=== PATIENT | male | born 1945 | race Caucasian/White ===

== ENCOUNTER 2023-11-11 10:38 | Outpatient (AMB) | payer MEDICARE, SELFPAY ==
[2023-11-11 10:57] VITALS: BP 126/64; PULSE 52; RESP 13; O2SAT 99; BMI 24.2
--- NOTE | 2023-11-11 10:57 | A.OFFPC_ITS ---
Vital Signs 11/11/23 10:57 Height 5 ft 7.25 in Weight 156 lb BMI 24.2 BP 126/64 Blood Pressure Location Lt brachial Position Sitting Respiration 13 Pulse 52 Pulse Source Pulse Oximeter Pulse Oximetry (%) 99 Oxygen Delivery Method Room Air Intake Visit Reasons: npo seizure disorder Intake Note: Patient is accompanied by his , Danielle. Danielle reports the Patient has been diagnosed with dementia, has a seizure disorder and is overall doing well. Patient needs medication refills. Field Investigator Required: No Accompanied by: Spouse Allergies phenytoin [From Dilantin] Allergy (Severe, Verified 11/11/23 11:02) skin discoloration Tobacco use date assessed: 11/11/23 Fall risk assessment: No Falls in past year Last assessed Fall Risk: 11/11/23 Dental Screening Dental Screen Date: 11/11/23 Did you have a dental visit in the last 12 months?: Yes Did you have a dental problem in the last 6 months where you did not have access to dental care?: No Was dental information given to patient?: Patient has dentist HPI HPI Comments History of Present Illness Details The patient is a 78-year-old male with a past medical history memory i ssues, epilepsy, neck pain, low back pain, osteopenia hyponatremia, polyneuropathy presenting [facility]. He is transferring from [facility]. Neuro: History of epilepsy, stenosis MCA. MOCA . Follows with Dr. Velasquez neurology. No recent seizure. On carbamazepine 0.5 tab t.i.d. and Keppra 750 mg tablet-takes 1.5 tabs twice daily CV: On atenolol, atorvastatin. Normotensive. Denies chest pain, shortness of breath MSK: History of cervical disc fusion, history of L3-L4 microdiscectomy in 2010. Has EpiPen for anaphylaxis. DXA 2021 Colonoscopy September 2010 ROS CONSTITUTIONAL: Denies weight loss, fever and chills. HEENT: Denies changes in vision and hearing. RESPIRATORY: Denies SOB and cough. CV: Denies palpitations and CP GI: Denies abdominal pain, nausea, vomiting and diarrhea. : Denies dysuria and urinary frequency. MSK: Denies new myalgia and joint pain. SKIN: Denies rash and pruritus. NEUROLOGICAL: Denies headache PSYCHIATRIC: Denies recent changes in mood. PHYSICAL EXAM: GENERAL: Alert and oriented x 3. NAD EYES: EOMI. Anicteric. HENT: Moist mucous membranes. No scleral icterus. No cervical lymphadenopathy. LUNGS: Clear to auscultation bilaterally. CARDIOVASCULAR: Regular rate and rhythm. No murmur. No JVD. ABDOMEN: Soft, non-tender +bs EXTREMITIES: No edema. Non-tender. SKIN: No rashes or lesions. Warm. NEUROLOGIC: No focal neurological deficits. CN II-XII grossly intact PSYCHIATRIC: Cooperative. Appropriate mood and affect [facility] Medical History (Updated 11/26/23 @ 13:20 by Kierra Chino MD) Dementia Seizures Surgical History History of back surgery History of neck surgery Family History Mother Alzheimer dementia Hypertension Maternal Grandmother Alzheimer dementia Paternal Grandmother Diabetes Social History Household Members: Spouse Housing: Apartment Are you a primary child care leader to a significant other at home: No Do you presently have visiting nurse or other home services: No 75 years or older and lives alone: No Alcohol intake: never Patient Tobacco Use Status: Former Tobacco user (quit 51 years ago) Tobacco use type: Cigarette e-Cigarette/Vaping Use: Never Used service: Yes ([employer] ) Current occupational status: retired and disabled Cognitive needs: Yes (dementia) Hearing needs: No Vision needs: Yes (wears glasses, has floater in right eye) Questionnaire PHQ-9 Over the last 2 weeks, how often have you been bothered by any of the following problems? 1. Little interest or pleasure in doing things: not at all 2. Feeling down, depressed, or hopeless: not at all 3. Trouble falling or staying asleep, or sleeping too much: not at all 4. Feeling tired or having little energy: not at all 5. Poor appetite or overeating: not at all 6. Feeling bad about yourself - or that you are a failure or have let yourself or your family down: not at all 7. Trouble concentrating on things, such as reading the newspaper or watching television: not at all 8. Moving or speaking so slowly that other people could have noticed. Or the opposite - being so fidgety or restless that you have been moving around a lot more than usual: not at all 9. Thoughts that you would be better off or of hurting yourself in some way: not at all Total score: 0 Depression Screening Interpretation: Negative (neg) Depression Screening Done: Yes 21550 - PHQ-9 Billing: Yes Source: Developed by Drs. Brannon Olguin, Lucy Fong, Fede Nowak and colleagues, with an educational marina from [employer]. Thrive Questionnaire Date Thrive assessed: 11/11/23 I am a: Patient What is your living situation today?: I have a steady place to live Within the past 12 months, did the food you bought not last and you didn't have the money to get more?: Never true Within the past 12 months, did you worry whether your food would run out before you got money to buy more?: Never true Do you have trouble paying for medicines?: No Do you have trouble getting transportation to medical appointments?: No Do you have trouble paying your heating and electricity bill?: No Do you have trouble taking care of your child, family member or friend?: No Do you have trouble with day-to-day activities such as bathing, preparing meals, shopping, managing finances, etc.?: Yes Are you currently unemployed and looking for a job?: No Are you interested in more education?: No Please select the resources that you would like help with: None Currently or been in a relationship where the following occur: No concerns reported THRIVE Score: 0 AUDIT C Alcohol Use Questionnaire (AUDIT-C) 1. How often do you have a drink containing alcohol?: Never 3. How often do you have six or more drinks on one occasion?: Never Total Score: 0 VAHID-7 AMB Questionnaire VAHID-7 Date VAHID - 7 assessed: 11/11/23 Feeling nervous, anxious, or on edge: 0 = Not at all Not being able to stop or control worryin = Not at all Worrying too much about different things: 0 = Not at all Trouble relaxin = Not at all Being so restless that it is hard to sit still: 0 = Not at all Becoming easily annoyed or irritable: 0 = Not at all Feeling afraid as if something awful might happen: 0 = Not at all Total VAHID-7 score (0-4 normal; 5-9 mild; 10-14 moderate; 15-21 severe): 0 Source: Developed by Drs. Brannon Olguin, Lucy Fong, Fede Nowak and colleagues, with an educational marina from [employer]. VAHID-7 Assessment Billing VAHID-7 Assessment Tool: VAHID-7 Assessment 47785 Physical exam (Primary Care) Vital Signs: Last Vital Signs Pulse 52 11/11/23 10:57 Resp 13 11/11/23 10:57 BP 126/64 11/11/23 10:57 Pulse Ox 99 11/11/23 10:57 Oxygen Delivery Method Room Air 11/11/23 10:57 BMI result Body Mass Index 24.2 Tobacco/Smoking Status: Tobacco use Status Tobacco use date assessed 11/11/23 11/11/23 11:07 Patient Tobacco Use Status Former Tobacco user (quit 51 11/11/23 11:13 years ago) Tobacco use type Cigarette 11/11/23 11:13 e-Cigarette/Vaping Use Never Used 11/11/23 11:13 PHQ-9: PHQ-9 Score PHQ-9: Total score 0 11/26/23 13:20 Depression Screening Interpretation: Negative (neg) Thrive Assessment: Date of Thrive Assessment Date Thrive assessed 11/11/23 11/11/23 11:33 Currently or been in a relationship where the following occur: No concerns reported Assessment and Plan Assessment & Plan (1) Hypertension: Code(s): I10 - Essential (primary) hypertension Qualifiers: Hypertension type: primary hypertension Qualified Code(s): I10 - Essential (primary) hypertension Plan: continue current medications (2) Hyperlipidemia: Code(s): E78.5 - Hyperlipidemia, unspecified Qualifiers: Hyperlipidemia type: unspecified Qualified Code(s): E78.5 - Hyperlipidemia, unspecified Plan: continue statin therapy (3) Seizures: Code(s): R56.9 - Unspecified convulsions (4) Dementia: Code(s): F03.90 - Unspecified dementia, unspecified severity, without behavioral disturbance, psychotic disturbance, mood disturbance, and anxiety Qualifiers: Dementia behavioral or psychological symptom: without behavioral, psychotic, or mood disturbance or anxiety Dementia severity: unspecified severity Dementia type: unspecified type Qualified Code(s): F03.90 - Unspecified dementia, unspecified severity, without behavioral disturbance, psychotic disturbance, mood disturbance, and anxiety Coding Level of Care Code New Pt Level 4 (46427) Diagnoses Primary hypertension I10 Hypertension type: primary hypertension Hyperlipidemia, unspecified hyperlipidemia type E78.5 Hyperlipidemia type: unspecified Seizures R56.9 Dementia without behavioral disturbance, psychotic disturbance, mood distu rbance, or anxiety, unspecified dementia severity, unspecified dementia type F03.90 Dementia behavioral or psychological symptom: without behavioral, psychotic, or mood disturbance or anxiety Dementia severity: unspecified severity Dementia type: unspecified type Additional Codes VAHID-7 Assessment Billing - VAHID-7 Assessment Tool: VAHID-7 Assessment 17417 ([id number])
== END 2023-11-11 12:24 | disposition home or self-care (01) ==
PROVIDERS: PCP Family Medicine; Visit Provider Internal Medicine
DX: I10 Essential (primary) hypertension (principal); E78.5 Hyperlipidemia, unspecified; R56.9 Unspecified convulsions; F03.90 Unspecified dementia, unspecified severity, without behavioral disturbance, psychotic disturbance, mood disturbance, and anxiety
CPT/HCPCS: 99204

== ENCOUNTER 2024-05-14 14:06 | Outpatient (AMB) | payer MEDICARE, SELFPAY ==
--- NOTE | 2024-05-14 14:23 | MHC.PC.OV ---
Intake Visit Reasons: awv Intake Note: Medical wellness visit Biscuit Packer Required: No Allergies phenytoin [From Dilantin] Allergy (Severe, Verified 05/14/24 14:24) skin discoloration Tobacco use date assessed: 11/11/23 Dental Screening Dental Screen Date: 11/11/23 HPI HPI Comments History of Present Illness Details The patient is a 78-year-old male with a past medical history memory issues, epilepsy, neck pain, low back pain, osteopenia hyponatremia, polyneuropathy presenting for physical exam. Neuro: History of epilepsy, stenosis MCA. MOCA . Was following neurology. Has had significant memory loss over the past year. Needs to see neurology for formal dementia diagnosis. No recent seizure. On carbamazepine 0.5 tab t.i.d. and Keppra 750 mg tablet-takes 1.5 tabs twice daily CV: On atenolol, atorvastatin. Normotensive. Denies chest pain, shortness of breath MSK: History of cervical disc fusion, history of L3-L4 microdiscectomy in 2010. Has EpiPen for anaphylaxis. DXA 2021 Colonoscopy September 2010-declines repeat. cooks does dishes, chores due to memory/functioning deficits No falls ROS CONSTITUTIONAL: Denies weight loss, fever and chills. HEENT: Denies changes in vision and hearing. RESPIRATORY: Denies SOB and cough. CV: Denies palpitations and CP GI: Denies abdominal pain, nausea, vomiting and diarrhea. : Denies dysuria and urinary frequency. MSK: Denies new myalgia and joint pain. SKIN: Denies rash and pruritus. NEUROLOGICAL: Denies headache PSYCHIATRIC: Denies recent changes in mood. PHYSICAL EXAM: GENERAL: Alert and oriented x 3. NAD EYES: EOMI. Anicteric. HENT: Moist mucous membranes. No scleral icterus. No cervical lymphadenopathy. LUNGS: Clear to auscultation bilaterally. CARDIOVASCULAR: Regular rate and rhythm. No murmur. No JVD. ABDOMEN: Soft, non-tender +bs EXTREMITIES: No edema. Non-tender. SKIN: No rashes or lesions. Warm. NEUROLOGIC: No focal neurological deficits. CN II-XII grossly intact PSYCHIATRIC: Cooperative. Appropriate mood and affect [facility] Medical History (Updated 05/17/24 @ 06:36 by Kierra Chino MD) Dementia Seizures Surgical History History of back surgery History of neck surgery Family History Mother Alzheimer dementia Hypertension Maternal Grandmother Alzheimer dementia Paternal Grandmother Diabetes Social History Household Members: Spouse Housing: Apartment Are you a primary cardiac care unit nurse to a significant other at home: No Do you presently have visiting nurse or other home services: No Alcohol intake: never Patient Tobacco Use Status: Former Tobacco user (quit 51 years ago) Tobacco use type: Cigarette e-Cigarette/Vaping Use: Never Used service: Yes ([employer] ) Current occupational status: retired and disabled Cognitive needs: Yes (dementia) Hearing needs: No Vision needs: Yes (wears glasses, has floater in right eye) Questionnaire Thrive Questionnaire Date Thrive assessed: 11/11/23 VAHID-7 AMB Questionnaire VAHID-7 Date VAHID - 7 assessed: 11/11/23 Source: Developed by Drs. Brannon lOguin, Lucy Fong, Fede Nowak and colleagues, with an educational marina from [employer]. Physical exam (Primary Care) Tobacco/Smoking Status: Tobacco use Status Tobacco use date assessed 11/11/23 05/14/24 14:27 Patient Tobacco Use Status Former Tobacco user (quit 51 05/14/24 14:27 years ago) Tobacco use type Cigarette 05/14/24 14:27 e-Cigarette/Vaping Use Never Used 05/14/24 14:27 Thrive Assessment: Date of Thrive Assessment Date Thrive assessed 11/11/23 05/14/24 14:27 Coding Level of Care Code Est Pt Level 4 (17238) Est Pt Prev Care >65y(72405) Diagnoses Physical exam Z00.00 Primary hypertension I10 Hypertension type: primary hypertension Dementia without behavioral disturbance, psychotic disturbance, mood disturbance, or anxiety, unspecified dementia severity, unspecified dementia type F03.90 Dementia behavioral or psychological symptom: without behavioral, psychotic, or mood disturbance or anxiety Dementia severity: unspecified severity Dementia type: unspecified type Seizures R56.9 Assessment & Plan Assessment & Plan (1) Physical exam: Code(s): Z00.00 - Encounter for general adult medical examination without abnormal findings Category: Medical Plan: Preventive measures reviewed Chronic medical conditions, medications reconciled (2) Hypertension: Code(s): I10 - Essential (primary) hypertension Category: Medical Qualifiers: Hypertension type: primary hypertension Qualified Code(s): I10 - Essential (primary) hypertension Plan: stable on current medications (3) Dementia: Code(s): F03.90 - Unspecified dementia, unspecified severity, without behavioral disturbance, psychotic disturbance, mood disturbance, and anxiety Category: Medical Qualifiers: Dementia behavioral or psychological symptom: without behavioral, psychotic, or mood disturbance or anxiety Dementia severity: unspecified severity Dementia type: unspecified type Qualified Code(s): F03.90 - Unspecified dementia, unspecified severity, without behavioral disturbance, psychotic disturbance, mood disturbance, and anxiety Plan: referral to neurology for evaluation (4) Seizures: Code(s): R56.9 - Unspecified convulsions Category: Medical Plan: no interval seizures on medicaitons Orders: Orders Levetiracetam Keppra 05/14/24 R56.9 - Unspecified convulsions Comprehensive Met. Panel 05/14/24 E78.5 - Hyperlipidemia, unspecified, F03.90 - Unspecified dementia, unspecified severity, without behavioral disturbance, psychotic disturbance, mood disturbance, and anxiety, I10 - Essential (primary) hypertension, R56.9 - Unspecified convulsions, Z00.00 - Encounter for general adult medical examination without abnormal findings Prostate Specific Antigen 05/14/24 E78.5 - Hyperlipidemia, unspecified, F03.90 - Unspecified dementia, unspecified severity, without behavioral disturbance, psychotic disturbance, mood disturbance, and anxiety, I10 - Essential (primary) hypertension, R56.9 - Unspecified convulsions, Z00.00 - Encounter for general adult medical examination without abnormal findings Complete Blood Count Auto Diff 05/14/24 E78.5 - Hyperlipidemia, unspecified, F03.90 - Unspecified dementia, unspecified severity, without behavioral disturbance, psychotic disturbance, mood disturbance, and anxiety, I10 - Essential (primary) hypertension, R56.9 - Unspecified convulsions, Z00.00 - Encounter for general adult medical examination without abnormal findings Lipid Panel 05/14/24 E78.5 - Hyperlipidemia, unspecified, F03.90 - Unspecified dementia, unspecified severity, without behavioral disturbance, psychotic disturbance, mood disturbance, and anxiety, I10 - Essential (primary) hypertension, R56.9 - Unspecified convulsions, Z00.00 - Encounter for general adult medical examination without abnormal findings Referrals Neurology Referral F03.90 - Unspecified dementia, unspecified severity, without behavioral disturbance, psychotic disturbance, mood disturbance, and anxiety
== END 2024-05-14 15:27 | disposition home or self-care (01) ==
PROVIDERS: PCP Internal Medicine; Visit Provider Internal Medicine
DX: Z00.00 Encounter for general adult medical examination without abnormal findings (principal); I10 Essential (primary) hypertension; F03.90 Unspecified dementia, unspecified severity, without behavioral disturbance, psychotic disturbance, mood disturbance, and anxiety; R56.9 Unspecified convulsions

== ENCOUNTER 2024-05-14 15:36 | Outpatient (REF) | payer MEDICARE, SELFPAY ==
[2024-05-14 16:56] LABS: MANUAL DIFF FLAG NO
[2024-05-14 17:00] LABS: Basophils Percent Auto 0.6 % (0-2); Eosinophils Absolute Auto 0.1 X10*3/uL (0.0-0.4); Eosinophils Percent Auto 2.6 % (0-4); Hematocrit 39.8 % (42.0-52.0); Hemoglobin 14.1 g/dl (14.0-18.0); Imm Gran Abs Auto 0.01 X10*3/uL (0.00-0.03); Imm Gran Pct Auto 0.2 % (0.0-0.4); Lymphocytes Absolute Auto 1.3 X10*3/uL (1.2-4.9); Lymphocytes Percent Auto 24.3 % (20-40); Mean Corpuscular HGB Conc 35.4 g/dl (31.0-36.0); Mean Corpuscular Hemoglobin 33.2 pg (27.0-33.0); Mean Corpuscular Volume 93.6 fL (80.0-98.0); Mean Platelet Volume 9.5 fL (9.4-12.4); Monocytes Absolute Auto 0.5 X10*3/uL (0.1-1.2); Monocytes Percent Auto 9.8 % (2-11); Neutrophils Absolute Auto 3.3 x10*3/uL (2.0-8.3); Neutrophils Percent Auto 62.5 % (45-73); Platelet Count 198 X10*3/uL (160-400); Red Blood Count 4.25 X10*6/uL (4.60-5.80); Red Cell Distribution Width 12.1 % (11.0-16.0); White Blood Count 5.3 X10*3/uL (4.8-10.8)
[2024-05-14 17:51] LABS: Prostate Specific Antigen 0.83 ng/mL (<0.05-4.0)
[2024-05-14 18:02] LABS: Alanine Aminotransferase 8 U/L (0-40); Anion Gap 11 (12-20); Aspartate Amino Transferase 19 U/L (5-37); Bilirubin Total 0.3 mg/dL (0.0-1.0); Blood Urea Nitrogen 12 mg/dL (9-16); Calcium 9.1 mg/dL (8.4-10.2); Carbon Dioxide 28 mmol/L (22-29); Chloride 102 mmol/L (96-108); Cholesterol 153 mg/dL (<200); Estimated Glomerular Filt Rate > 60; Glucose Random 90 mg/dL (60-115); HDL Cholesterol 63 mg/dL (>40); LDL Cholesterol Calculated 77 mg/dL (<100); Potassium 4.6 mmol/L (3.3-5.1); Sodium 136 mmol/L (135-145); Total Protein 7.2 g/dL (6.5-8.0); Triglycerides 69 mg/dL (<150)
[2024-05-14 18:09] LABS: Alkaline Phosphatase 88 U/L (39-117)
[2024-05-17 20:38] LABS: Levetiracetam Keppra 20.1 mcg/mL (6.0-46.0)
== END 2024-05-14 15:37 | disposition home or self-care (01) ==
LOC: HO.WFDLDS 15:36
PROVIDERS: Visit Provider Internal Medicine
DX: Z00.00 Encounter for general adult medical examination without abnormal findings (principal); I10 Essential (primary) hypertension; F03.90 Unspecified dementia, unspecified severity, without behavioral disturbance, psychotic disturbance, mood disturbance, and anxiety; R56.9 Unspecified convulsions; E78.5 Hyperlipidemia, unspecified; Z12.5 Encounter for screening for malignant neoplasm of prostate
CPT/HCPCS: 36415; 80053; 80061; 80177; 84153; 85025; 99212; 99397

== ENCOUNTER 2024-10-25 15:27 | Outpatient (AMB) | payer MEDICARE, SELFPAY ==
--- NOTE | 2024-10-25 15:41 | A.OFFPC_ITS ---
Vital Signs 10/25/24 15:54 Height 5 ft 7.2 in Weight 156 lb BMI 24.3 BP 152/82 H Blood Pressure Location Lt brachial Position Sitting Respiration 12 Pulse 52 Pulse Source Pulse Oximeter Pulse Oximetry (%) 100 Oxygen Delivery Method Room Air Intake Visit Reasons: BP F/U Intake Note: Blood pressure follow up Training Specialist Required: No Allergies phenytoin (From Dilantin) Allergy (Severe, Verified 10/25/24 15:49) skin discoloration Tobacco use date assessed: 11/11/23 Dental Screening Dental Screen Date: 11/11/23 HPI HPI Comments History of Present Illness Details The patient is a 79-year-old male with dementia, epilepsy, neck pain, low back pain, osteopenia hyponatremia, polyneuropathy presenting for follow up Neuro: History of epilepsy, stenosis MCA. MOCA . Today did not do well. Score 13. Was following neurology. Continues with significant memory loss over the past year. Had memory/neurology referral-decided not to go through with it. Strong family history of early dementia. No recent seizure. On carbamazepine 0.5 tab t.i.d. and Keppra 750 mg tablet-takes 1.5 tabs twice daily CV: On atenolol, atorvastatin. Normotensive. Denies chest pain, shortness of breath MSK: History of cervical disc fusion, history of L3-L4 microdiscectomy in 2010. Back has not been causing increased pain Has EpiPen for anaphylaxis. DXA 2021 Colonoscopy September 2010-declines repeat. cooks does dishes, chores due to memory/functioning deficits No falls ROS CONSTITUTIONAL: Denies weight loss, fever and chills. HEENT: Denies changes in vision and hearing. RESPIRATORY: Denies SOB and cough. CV: Denies palpitations and CP GI: Denies abdominal pain, nausea, vomiting and diarrhea. : Denies dysuria and urinary frequency. MSK: Denies new myalgia and joint pain. SKIN: Denies rash and pruritus. NEUROLOGICAL: see HPI PSYCHIATRIC: Denies recent changes in mood. PHYSICAL EXAM: GENERAL: Alert and oriented x 3. NAD EYES: EOMI. Anicteric. HENT: Moist mucous membranes. No scleral icterus. No cervical lymphadenopathy. LUNGS: Clear to auscultation bilaterally. CARDIOVASCULAR: Regular rate and rhythm. No murmur. No JVD. ABDOMEN: Soft, non-tender +bs EXTREMITIES: No edema. Non-tender. SKIN: No rashes or lesions. Warm. NEUROLOGIC: No focal neurological deficits. CN II-XII grossly intact PSYCHIATRIC: Cooperative. Appropriate mood and affect [facility] Medical History Dementia Seizures Surgical History History of back surgery History of neck surgery Family History Mother Alzheimer dementia Hypertension Maternal Grandmother Alzheimer dementia Paternal Grandmother Diabetes Social History Household Members: Spouse Housing: Apartment Are you a primary emergency care attendant to a significant other at home: No Do you presently have visiting nurse or other home services: No Alcohol intake: never Patient Tobacco Use Status: Former Tobacco user (quit 51 years ago) Tobacco use type: Cigarette e-Cigarette/Vaping Use: Never Used service: Yes ([employer] ) Current occupational status: retired and disabled Cognitive needs: Yes (dementia) Hearing needs: No Vision needs: Yes (wears glasses, has floater in right eye) Questionnaire PHQ-9 Over the last 2 weeks, how often have you been bothered by any of the following problems? 1. Little interest or pleasure in doing things: not at all 2. Feeling down, depressed, or hopeless: not at all 3. Trouble falling or staying asleep, or sleeping too much: not at all 4. Feeling tired or having little energy: not at all 5. Poor appetite or overeating: not at all 6. Feeling bad about yourself - or that you are a failure or have let yourself or your family down: not at all 7. Trouble concentrating on things, such as reading the newspaper or watching television: not at all 8. Moving or speaking so slowly that other people could have noticed. Or the opposite - being so fidgety or restless that you have been moving around a lot more than usual: not at all 9. Thoughts that you would be better off or of hurting yourself in some way: not at all Total score: 0 Depression Screening Interpretation: Negative Depression Screening Done: Yes 32827 - PHQ-9 Billing: Yes Source: Developed by Drs. Brannon Olguin, Fede Bernard and colleagues, with an educational marina from [employer]. Thrive Questionnaire Date Thrive assessed: 11/11/23 I am a: Patient What is your living situation today?: I have a steady place to live Within the past 12 months, did the food you bought not last and you didn't have the money to get more?: Never true Within the past 12 months, did you worry whether your food would run out before you got money to buy more?: Never true Do you have trouble paying for medicines?: No Do you have trouble getting transportation to medical appointments?: No Do you have trouble paying your heating and electricity bill?: No Do you have trouble taking care of your child, family member or friend?: No Do you have trouble with day-to-day activities such as bathing, preparing meals, shopping, managing finances, etc.?: Yes Are you currently unemployed and looking for a job?: No Are you interested in more education?: No Please select the resources that you would like help with: None Currently or been in a relationship where the following occur: No concerns reported THRIVE Score: 0 AUDIT C Alcohol Use Questionnaire (AUDIT-C) 1. How often do you have a drink containing alcohol?: Never Total Score: 0 VAHID-7 AMB Questionnaire VAHID-7 Date VAHID - 7 assessed: 11/11/23 Feeling nervous, anxious, or on edge: 0 = Not at all Not being able to stop or control worryin = Not at all Worrying too much about different things: 0 = Not at all Trouble relaxin = Not at all Being so restless that it is hard to sit still: 0 = Not at all Becoming easily annoyed or irritable: 1 = Several days Feeling afraid as if something awful might happen: 0 = Not at all Total VAHID-7 score (0-4 normal; 5-9 mild; 10-14 moderate; 15-21 severe): 1 Source: Developed by Lucy Ann Kurt Kroenke and colleagues, with an educational marina from [employer]. Physical exam (Primary Care) Vital Signs: Last Vital Signs Pulse 52 10/25/24 15:54 Resp 12 10/25/24 15:54 BP 152/82 H 10/25/24 15:54 Pulse Ox 100 10/25/24 15:54 Oxygen Delivery Method Room Air 10/25/24 15:54 BMI result Body Mass Index 24.3 Tobacco/Smoking Status: Tobacco use Status Tobacco use date assessed 11/11/23 10/25/24 15:42 Patient Tobacco Use Status Former Tobacco user (quit 51 10/25/24 15:42 years ago) Tobacco use type Cigarette 10/25/24 15:42 e-Cigarette/Vaping Use Never Used 10/25/24 15:42 PHQ-9: PHQ-9 Score PHQ-9: Total score 0 10/27/24 14:51 Depression Screening Interpretation: Negative Thrive Assessment: Date of Thrive Assessment Date Thrive assessed 11/11/23 10/25/24 15:42 Currently or been in a relationship where the following occur: No concerns reported Coding Level of Care Code Est Pt Level 4 (57443) Diagnoses Primary hypertension I10 Hypertension type: primary hypertension Hyperlipidemia, unspecified hyperlipidemia type E78.5 Hyperlipidemia type: unspecified Dementia without behavioral disturbance, psychotic disturbance, mood disturbance, or anxiety, unspecified dementia severity, unspecified dementia type F03.90 Dementia behavioral or psychological symptom: without behavioral, psychotic, or mood disturbance or anxiety Dementia severity: unspecified severity Dementia type: unspecified type Seizures R56.9 Additional Codes PHQ-9 - 75693 - PHQ-9 Billing: Yes ([id number]) Assessment & Plan Assessment & Plan (1) Hypertension: Code(s): I10 - Essential (primary) hypertension Category: Medical Qualifiers: Hypertension type: primary hypertension Qualified Code(s): I10 - Esse ntial (primary) hypertension (2) Hyperlipidemia: Code(s): E78.5 - Hyperlipidemia, unspecified Category: Medical Qualifiers: Hyperlipidemia type: unspecified Qualified Code(s): E78.5 - Hyperlipidemia, unspecified (3) Dementia: Code(s): F03.90 - Unspecified dementia, unspecified severity, without behavioral disturbance, psychotic disturbance, mood disturbance, and anxiety Category: Medical Qualifiers: Dementia behavioral or psychological symptom: without behavioral, psychotic, or mood disturbance or anxiety Dementia severity: unspecified severity Dementia type: unspecified type Qualified Code(s): F03.90 - Unspecified dementia, unspecified severity, without behavioral disturbance, psychotic disturbance, mood disturbance, and anxiety (4) Seizures: Code(s): R56.9 - Unspecified convulsions Category: Medical Plan 79 year old for follow up Remote seizure history. Remains on meds. Worsening dementia. Declines neurology referral though recommended Blood pressure is well controlled on current medications Labs ordered Orders: Orders Levetiracetam Keppra Today E78.5 - Hyperlipidemia, unspecified, F03.90 - Unspecified dementia, unspecified severity, without behavioral disturbance, psychotic disturbance, mood disturbance, and anxiety, I10 - Essential (primary) hypertension, R56.9 - Unspecified convulsions Comprehensive Met. Panel Today E78.5 - Hyperlipidemia, unspecified, F03.90 - Unspecified dementia, unspecified severity, without behavioral disturbance, psychotic disturbance, mood disturbance, and anxiety, I10 - Essential (primary) hypertension, R56.9 - Unspecified convulsions TSH reflex Free T4 Today E78.5 - Hyperlipidemia, unspecified, F03.90 - Unsp ecified dementia, unspecified severity, without behavioral disturbance, psychotic disturbance, mood disturbance, and anxiety, I10 - Essential (primary) hypertension, R56.9 - Unspecified convulsions Vitamin B12 and Folate Today E78.5 - Hyperlipidemia, unspecified, F03.90 - Unspecified dementia, unspecified severity, without behavioral disturbance, psychotic disturbance, mood disturbance, and anxiety, I10 - Essential (primary) hypertension, R56.9 - Unspecified convulsions Lipid Panel Today E78.5 - Hyperlipidemia, unspecified, F03.90 - Unspecified dementia, unspecified severity, without behavioral disturbance, psychotic disturbance, mood disturbance, and anxiety, I10 - Essential (primary) hypertension, R56.9 - Unspecified convulsions
[2024-10-25 15:54] VITALS: BP 152/82; PULSE 52; RESP 12; O2SAT 100; BMI 24.3
== END 2024-10-25 17:04 | disposition home or self-care (01) ==
LOC: HO.HMCFM 15:28
PROVIDERS: PCP Internal Medicine; Visit Provider Internal Medicine
DX: I10 Essential (primary) hypertension (principal); E78.5 Hyperlipidemia, unspecified; F03.90 Unspecified dementia, unspecified severity, without behavioral disturbance, psychotic disturbance, mood disturbance, and anxiety; R56.9 Unspecified convulsions

== ENCOUNTER → 2024-10-25 15:27 | Outpatient (BNVA) | payer MEDICARE, SELFPAY | PROVIDERS: PCP Internal Medicine; Visit Provider Internal Medicine | DX: I10 Essential (primary) hypertension (principal); E78.5 Hyperlipidemia, unspecified; F03.90 Unspecified dementia, unspecified severity, without behavioral disturbance, psychotic disturbance, mood disturbance, and anxiety; R56.9 Unspecified convulsions; Z79.899 Other long term (current) drug therapy; Z98.1 Arthrodesis status; Z13.31 Encounter for screening for depression | CPT/HCPCS: 96127; 99212 ==

== ENCOUNTER 2024-10-27 09:23 | Outpatient (REF) | payer MEDICARE, SELFPAY ==
[2024-10-27 14:39] LABS: Alanine Aminotransferase 10 U/L (0-40); Albumin Level 4.0 g/dL (3.5-5.0); Alkaline Phosphatase 75 U/L (39-117); Anion Gap 9 (12-20); Aspartate Amino Transferase 20 U/L (5-37); Blood Urea Nitrogen 9 mg/dL (9-16); Calcium 8.5 mg/dL (8.4-10.2); Carbon Dioxide 26 mmol/L (22-29); Chloride 102 mmol/L (96-108); Cholesterol 135 mg/dL (<200); Estimated Glomerular Filt Rate > 60; HDL Cholesterol 60 mg/dL (>40); Potassium 4.0 mmol/L (3.3-5.1); Sodium 133 mmol/L (135-145); Total Protein 6.3 g/dL (6.5-8.0); Triglycerides 45 mg/dL (<150)
[2024-10-27 15:18] LABS: Folate 4.5 ng/mL (> or = 4.0); Vitamin B12 603 pg/mL (200-900)
[2024-10-30 00:53] LABS: Levetiracetam Keppra 12.9 mcg/mL (6.0-46.0)
== END 2024-10-27 09:24 | disposition home or self-care (01) ==
LOC: HO.HMGCLDS 09:23
PROVIDERS: PCP Internal Medicine; Visit Provider Internal Medicine
DX: R56.9 Unspecified convulsions (principal); F03.90 Unspecified dementia, unspecified severity, without behavioral disturbance, psychotic disturbance, mood disturbance, and anxiety; I10 Essential (primary) hypertension; E78.5 Hyperlipidemia, unspecified
CPT/HCPCS: 36415; 80053; 80061; 80177; 82607; 82746; 84443